=== PATIENT | male | born 1965 | race Caucasian/White ===

== ENCOUNTER 2020-05-04 13:21 | Inpatient (IN) ==
--- NOTE | 2020-05-04 14:33 | Emergency Department Note ---
History of Present Illness General Chief complaint: Stroke/CVA Symptoms Stated complaint: LEFT ARM NUMB & ABOVE LEFT EYEY Time Seen by Provider: 05/04/20 14:15 Source: patient Mode of arrival: ambulatory Limitations: no limitations History of Present Illness Maximum Pain Intensity: 0 This patient comes in after having tingling in his left arm and a little bit in his left face that he woke up with the 2:00 in the morning on Monday. He says since then its is gotten significantly better he has minimal tingling in his left hand and antecubital fossa area and he is not sure if he has any on his face there is no other symptoms. He has had no headache. There is no weakness. He has had no difficulty speaking or swallowing or ambulating. No chest pain or shortness of breath. No fever or chills. No known exposure to Covid or GI symptoms present. Home Medications Medication Instructions Recorded Confirmed Type Otc Pain Reliever 1 tab PO UD PRN 05/04/20 05/04/20 History aspirin 325 mg PO DAILY 05/04/20 05/04/20 History Allergies Allergy/AdvReac Type Severity Reaction Status Date / Time No Known Allergies Allergy Unverified 05/04/20 15:27 Past Med/Surg History Social History Smoking Status: Current every day smoker Tobacco Type: Cigarettes Feels Safe at Home: Yes Immunizations: Past medical historydenies hypertension or diabetes or cardiac disease. He has not seen a doctor in many years however. Social history - He is a smoker. Does not use alcohol or drugs. Review of Systems A total of 10 systems reviewed and were otherwise negative Physical Exam Vital Signs Vital Signs - 24 hr 05/04/20 13:28 05/04/20 15:27 05/04/20 16:04 Temperature 36.8 C Temperature Source Oral Pulse Rate 83 Pulse Rate [Right Finger] 72 72 Respiratory Rate 18 18 18 Respiratory Effort / Characteristics Non-Labored Respiratory Depth Normal Blood Pressure 157/101 H Blood Pressure [Right Arm] 158/98 H 149/90 H Blood Pressure Mean 119 Blood Pressure Mean [Right Arm] 118 109 Pulse Oximetry 96 97 97 Oxygen Delivery Method Room Air Room Air Sepsis Recent Fever Within 48 Hours No Sepsis New/Unexplained Change in Mental Status No Sepsis Action Taken by Nursing No Action Required General: Well developed well nourished not ill-appearing middle-age male who appears in no acute distress, breathing comfortably on room air. Normal speech HEENT: Normal cephalic atraumatic. Pupils are equal round and reactive to light. Extraocular movements are intact. Oropharynx is pink with moist mucous membranes. No swelling of the mouth lips or tongue. Neck: Supple with a midline trachea. No meningeal signs or stiffness, no JVD or bruits. No Stridor. Chest: Clear to auscultation bilaterally. No wheezes or rhonchi. No increased work of breathing. Heart: Regular rate and rhythm without murmurs or gallops. Abdomen: Soft nontender, nondistended without rebound guarding or rigidity. Extremities: No cyanosis clubbing or edema. No calf tenderness or assymetry Spine/Back. Non tender to palpation. No CVA tenderness Skin: Good turgor without rashes. Neurologic exam: Cranial nerves two through 12 are intact. Motor and sensation are intact and symmetrical throughout. Normal speech. His stroke scale was 0. Subjectively he says he feels tingly and small areas on his left arm around his knuckles and also antecubital fossa however went to sharp and dull he gets these correct. No facial asymmetry or droop. Course Administered Medications Discontinued Medications Gadobutrol (Gadobutrol 65ml Vial) 7.5 ml IV ONCE ONE Stop: 05/04/20 17:39 Last Admin: 05/04/20 17:38 Dose: 7.5 ml Documented by: [id number] Ioversol (Optiray 320 125ml) 119 ml IV ONCE ONE Stop: 05/04/20 15:55 Last Admin: 05/04/20 15:54 Dose: 119 ml Documented by: [id number] Medical Decision Making Differential Diagnosis TIA, CVA, intracranial process, infection, anemia, electrolyte or metabolic abnormality. Medical Records Attestation: I reviewed the patient's medical records. Home Medications Current Medication List: was personally reviewed by me Laboratory Data Attestation: I reviewed the patient's lab results. Result diagrams: 05/04/20 13:40 05/04/20 13:40 Lab Results 05/04/20 05/04/20 05/04/20 Range/Units 13:40 13:40 13:40 WBC 10.87 H (4.8-10.8) K/uL RBC 4.93 (4.7-6.1) M/uL Hgb 15.2 (14.0-18.0) g/dL Hct 45.5 (42-52) % MCV 92.3 (80-100) fL MCH 30.8 (25-34) pg MCHC 33.4 (32-36) g/dL RDW Std Deviation 48.6 H (36.4-46.3) fL RDW Coeff of Abdifatah 14.3 (11.5-14.5) % Plt Count 297 (130-400) K/uL MPV 10.5 H (7.4-10.4) fL Immature Gran % (Auto) 0.3 % Neut % (Auto) 56.5 % Lymph % (Auto) 31.9 % Pettis % (Auto) 9.6 % Eos % (Auto) 1.5 % Baso % (Auto) 0.2 % Neut # (Auto) 6.15 (1.4-6.5) K/uL Lymph # (Auto) 3.47 H (1.2-3.4) K/uL Pettis # (Auto) 1.04 H (0.11-0.59) K/uL Eos # (Auto) 0.16 (0-0.5) K/uL Baso # (Auto) 0.02 (0-0.2) K/uL Immature Gran # (Auto) 0.03 H (0.00-0.02) K/uL PT 10.1 (9.0-12.0) Seconds INR 1.0 (0.9-1.1) APTT 29.9 (21.0-31.0) Seconds PTT Ratio 1.1 Sodium 142 (136-145) mmol/L Potassium 3.7 (3.5-5.1) mmol/L Chloride 111 H (98-107) mmol/L Carbon Dioxide 25 (21-32) mmol/L Anion Gap 6.0 (3-11) BUN 18 (7-18) mg/dl Creatinine 0.91 (0.6-1.4) mg/dl Est Cr Clr Drug Dosing 86.8 ml/min Est GFR ( Amer) 110.3 Est GFR (Non-Af Amer) 95.2 BUN/Creatinine Ratio 19.4 (10-20) Glucose 95 (70-99) mg/dl Calcium 9.1 (8.5-10.1) mg/dl Magnesium 2.3 (1.8-2.4) mg/dl Total Bilirubin 0.6 (0.2-1) mg/dl AST 21 (15-37) U/L ALT 31 (12-78) U/L Alkaline Phosphatase 79 (45-117) U/L Troponin I < 0.015 (0-0.045) ng/ml Total Protein 7.4 (6.4-8.2) gm/dl Albumin 3.9 (3.4-5.0) gm/dl Globulin 3.5 (2.5-4.0) gm/dl Albumin/Globulin Ratio 1.1 (0.9-2) Imaging Data Attestation: I personally reviewed and interpreted this imaging study as follows: Radiologist's Impression: CT head/brain wo con CLINICAL HISTORY: Stroke evaluation LEFT ARM NUMBNESS COMPARISON STUDY: No previous studies for comparison. TECHNIQUE: Axial CT of the brain is performed from the vertex to the skull base. IV contrast was not administered for this examination. A dose lowering t echnique was utilized adhering to the principles of ALARA. CT DOSE: FINDINGS: No intra or extra-axial mass lesions are visualized. There is no CT evidence of acute cortical infarction. There is no evidence of midline shift. There is no acute hemorrhage. No calvarial fractures are visualized. There is a 4 mm hypodensity within the right frontal white matter, consistent with a dilated perivascular space or old lacunar infarct. There are minimal foci of diminished attenuation within the white matter likely on a small vessel basis. There is no evidence of pathologic ventricular dilatation. There is no evidence of acute sinusitis IMPRESSION: No acute intracranial findings. HEAD CTA HISTORY: Left arm numbness. Stroke evaluation TECHNIQUE: Multiaxial CT images of the head were performed both before and after the intravenous administration of contrast to evaluate the major cerebral v essels. Maximum intensity projection images were also obtained. A dose lowering technique was utilized adhering to the principles of ALARA. COMPARISON: None. FINDINGS: There is no mass, hematoma, midline shift, or acute infarct. Visualized intracranial internal carotid arteries, distal vertebral arteries, and basilar artery are widely patent. There is no significant stenosis, occlusion, or aneurysm seen within the bilateral ACAs, MCAs, or purse framer. The major dural venous sinuses are patent. IMPRESSION: No significant stenosis, occlusion, or aneurysm within the [place] of [place]. CT angio neck with con CLINICAL HISTORY: Stroke evaluation COMPARISON STUDY: No previous studies for comparison. TECHNIQUE: CT angiography was performed from the aortic arch to the skull base. MIP imaging was performed. The patient was scanned in a dynamic helical fashion during intravenous administration of 119 cc of Optiray 320. A dose lowering technique was utilized adhering to the principles of ALARA. CT DOSE: 1620.67 mGy.cm Technique: CT angiogram of the carotid and vertebral arteries was obtained using intravenous contrast and 3-D reconstruction. NASCET criteria was utilized. Findings: The right carotid revealed no evidence of aneurysm and no evidence of dissection. There is no evidence of hemodynamic significant stenosis. The left carotid revealed no evidence of hemodynamic significant stenosis. There is no evidence of aneurysm. There is no evidence of dissection. There is no evidence of hemodynamically significant vertebral stenosis. There is no evidence of vertebral dissection. The left vertebral origin is suboptimally assessed due to artifact from adjacent dense venous contrast IMPRESSION: No evidence of hemodynamically significant carotid or vertebral artery stenosis. No evidence of dissection. MRI OF THE BRAIN WITHOUT AND WITH IV CONTRAST CLINICAL HISTORY: eval for stroke, left arm numbness and tingling COMPARISON STUDY: Noncontrast head CT dated 05/04/2020 TECHNIQUE: MRI of the brain was performed from the vertex to the skull base utilizing various T1 and T2 weighted sequences. Following the IV administration of 7.5 mL of Gadavist contrast, additional enhanced images were obtained. FINDINGS: Sagittal T1, axial diffusion, proton density and T2 weighted axial, coronal FLAIR, and pre and post axial T1-weighted images were acquired. These were supplemented with post gadolinium coronal T1 weighted images. No intra or extra-axial mass lesions are visualized. There is a 6 mm focus of restricted water diffusion within the right lateral thalamus consistent with a subacute infarct There is no evidence of ventricular dilatation. Proton density T2-weighted and FLAIR images reveal a 6 mm focus of increased T2 signal within the right thalamus, corresponding to the area of restricted water diffusion. This is indicative of a subacute infarct. There are scattered tiny foci of increased T2 signal within the white matter, likely on a small vessel ischemic basis. There are no abnormal flow voids. There is no evidence of pathologic enhancement. IMPRESSION: 1. 6 mm focus of restricted water diffusion within the right thalamus indicative of a subacute infarct 2. No evidence of intracranial mass. ECG Data Attestation: I personally reviewed and interpreted this ECG as follows: Indication: + weakness Rate (beats per minute): 82 Rhythm: + normal sinus ECG Intervals/blocks: + Normal QRS, + Normal QT and + Normal AR ECG [place]: + Normal ECG ST segments: + Normal ST segments and + ST depression Comparison ECG Date: no prior available MDM Narrative This patient comes in as described above peers placed on a rn cardiac cath room a 4. He has had vague tingling in his left arm and maybe his face since Monday. It has gotten significantly better. he has a normal neurologic exam and looks well. He has had no known exposure to Covid. he has stable vital signs. He is afebrile. He did have an extensive stroke work-up including EKG and multiple blood testing and CT with CTA of the head and neck. He was reassessed frequently. Given the time frame he was not a stroke alert as this has been going on for several days and he was out of the window of TPA or acute intervention, additionally his stroke score was 0. He has nothing to suggest infection. He is not anemic. He has no significant lecture light or metabolic abnormality. His EKG shows normal sinus rhythm without ischemic changes. His troponin is negative. He has no renal failure or liver failure. CAT scan of the head and neck were obtained with CTA. There is no significant stenosis or vascular abnormality in the head or neck. There is a 4 mm hypodensity in the right frontal area which could be an old lacunar infarct. I did suggest we do an MRI which the patient did agree to and was performed. Impression & Plan Stroke, Numbness and tingling in left arm Discharge Plan Visit Data Chief Complaint: Stroke/CVA Symptoms Stated Complaint: LEFT ARM NUMB & ABOVE LEFT EYEY ED Provider: Sky Packer Discharge Problem: Stroke, Numbness and tingling in left arm Discharge Instructions Activity Restrictions/Additional Instructions: Rest. Drink plenty of fluids. Take an enteric-coated aspirin 81 mg once a day Return if: Worsening symptoms, numbness weakness, any new problems or concerns. Follow-up with your doctor this week for recheck Forms Stand Alone Forms: My [facility] [employer] Prescriptions Prescriptions: No Action aspirin 325 mg Tablet 325 mg PO DAILY RF: 0 Otc Pain Reliever 1 tab PO UD PRN (Reason: Pain) RF: 0 Referrals Referrals: PCP,NO [Primary Care Provider] - Discharge Problem: Stroke Qualifiers: CVA mechanism: unspecified Qualified Code(s): I63.9 - Cerebral infarction, unspecified
--- NOTE | 2020-05-04 14:54 | XRay Report ---
XR chest 1V portable CLINICAL HISTORY: stroke-like symptoms COMPARISON STUDY: No previous studies for comparison. FINDINGS: The cardiac and mediastinal contours are normal. There is no evidence of focal pulmonary co nsolidation. There is no evidence of failure. No pleural effusions are visualized.[ IMPRESSION: No active disease in the chest. ACT 112: Negative or not required by law. Electronically signed by: Oscar Rios M.D. 05/04/2020 2:53 PM
[2020-05-04 15:29] LABS: Basophils # (auto) 0.02 K/uL (0-0.2); Basophils % (auto) 0.2 %; Eosinophils # (auto) 0.16 K/uL (0-0.5); Eosinophils % (auto) 1.5 %; Hematocrit (blood only) 45.5 % (42-52); Hemoglobin 15.2 g/dL (14.0-18.0); Immature Granulocytes # (auto) 0.03 K/uL (0.00-0.02); Immature Granulocytes % (auto) 0.3 %; Lymphocytes # (auto) 3.47 K/uL (1.2-3.4); Lymphocytes % (auto) 31.9 %; Mean Corpuscular Hemoglobin 30.8 pg (25-34); Mean Corpuscular Hgb Conc 33.4 g/dL (32-36); Mean Corpuscular Volume 92.3 fL (80-100); Mean Platelet Volume 10.5 fL (7.4-10.4); Monocytes # (auto) 1.04 K/uL (0.11-0.59); Monocytes % (auto) 9.6 %; Neutrophils # (auto) 6.15 K/uL (1.4-6.5); Neutrophils % (auto) 56.5 %; Platelet Count 297 K/uL (130-400); RDW Coefficient of Variation 14.3 % (11.5-14.5); RDW Standard Deviation 48.6 fL (36.4-46.3); Red Blood Count 4.93 M/uL (4.7-6.1); White Blood Count 10.87 K/uL (4.8-10.8)
[2020-05-04 15:37] LABS: Alanine Aminotransferase 31 U/L (12-78); Albumin Level 3.9 gm/dl (3.4-5.0); Aspartate Aminotransferase 21 U/L (15-37); BUN Creatinine Ratio 19.4 (10-20); Blood Urea Nitrogen 18 mg/dl (7-18); Calcium 9.1 mg/dl (8.5-10.1); Carbon Dioxide 25 mmol/L (21-32); Chloride 111 mmol/L (98-107); Creatinine Clr Calc Pharmacy 86.8 ml/min; Est GFR (African American) 110.3; Est GFR (Non-African American) 95.2; Glucose 95 mg/dl (70-99); Magnesium 2.3 mg/dl (1.8-2.4); Potassium 3.7 mmol/L (3.5-5.1); Sodium 142 mmol/L (136-145)
[2020-05-04 15:41] LABS: Partial Thromboplastin Ratio 1.1; Partial Thromboplastin Time 29.9 Seconds (21.0-31.0); Prothrombin Time 10.1 Seconds (9.0-12.0)
[2020-05-04 15:42] LABS: Albumin Globulin Ratio 1.1 (0.9-2); Alkaline Phosphatase 79 U/L (45-117); Bilirubin,Total 0.6 mg/dl (0.2-1); Globulin 3.5 gm/dl (2.5-4.0); Total Protein 7.4 gm/dl (6.4-8.2); Troponin I < 0.015 ng/ml (0-0.045)
[2020-05-04] MEDS ORDERED: OPTIRAY 320 125ml IV ONE (15:54)
--- NOTE | 2020-05-04 16:05 | CT Scan Report ---
CT head/brain wo con CLINICAL HISTORY: Stroke evaluation LEFT ARM NUMBNESS COMPARISON STUDY: No previous studies for comparison. TECHNIQUE: Axial CT of the brain is performed from the vertex to the skull base. IV contrast was not administered for this examination. A dose lowering technique was utilized adhering to the principles of ALARA. CT DOSE: FINDINGS: No intra or extra-axial mass lesions are visualized. There is no CT evidence of acute cortical infarc tion. There is no evidence of midline shift. There is no acute hemorrhage. No calvarial fractures ar e visualized. There is a 4 mm hypodensity within the right frontal white matter, consistent with a dilated perivasc ular space or old lacunar infarct. There are minimal foci of diminished attenuation within the white matter likely on a small vessel basis. There is no evidence of pathologic ventricular dilatation. There is no evidence of acute sinusitis IMPRESSION: No acute intracranial findings. ACT 112: Negative or not required by law. Electronically signed by: Oscar Rios M.D. 05/04/2020 4:04 PM
--- NOTE | 2020-05-04 16:08 | CT Scan Report ---
CT angio neck with con CLINICAL HISTORY: Stroke evaluation COMPARISON STUDY: No previous studies for comparison. TECHNIQUE: CT angiography was performed from the aortic arch to the skull base. MIP imaging was perfo rmed. The patient was scanned in a dynamic helical fashion during intravenous administration of 119 c c of Optiray 320. A dose lowering technique was utilized adhering to the principles of ALARA. CT DOSE: 1620.67 mGy.cm Technique: CT angiogram of the carotid and vertebral arteries was obtained using intravenous contrast and 3-D reconstruction. NASCET criteria was utilized. Findings: The right carotid revealed no evidence of aneurysm and no evidence of dissection. There is no evidenc e of hemodynamic significant stenosis. The left carotid revealed no evidence of hemodynamic significant stenosis. There is no evidence of an eurysm. There is no evidence of dissection. There is no evidence of hemodynamically significant vertebral stenosis. There is no evidence of verte bral dissection. The left vertebral origin is suboptimally assessed due to artifact from adjacent den se venous contrast IMPRESSION: No evidence of hemodynamically significant carotid or vertebral artery stenosis. No evidence of disse ction. ACT 112: Negative or not required by law. Electronically signed by: Oscar Rios M.D. 05/04/2020 4:07 PM
--- NOTE | 2020-05-04 16:09 | CT Scan Report ---
HEAD CTA HISTORY: Left arm numbness. Stroke evaluation TECHNIQUE: Multiaxial CT images of the head were performed both before and after the intravenous admi nistration of contrast to evaluate the major cerebral vessels. Maximum intensity projection images we re also obtained. A dose lowering technique was utilized adhering to the principles of ALARA. COMPARISON: None. FINDINGS: There is no mass, hematoma, midline shift, or acute infarct. Visualized intracranial cisco certified internetwork expert al carotid arteries, distal vertebral arteries, and basilar artery are widely patent. There is no sig nificant stenosis, occlusion, or aneurysm seen within the bilateral ACAs, MCAs, or emergency medicine nurse practitioner. The major du ral venous sinuses are patent. IMPRESSION: No significant stenosis, occlusion, or aneurysm within the [place] of [place]. ACT 112: Negative or not required by law. Electronically signed by: Luis Valenzuela M.D. 05/04/2020 4:07 PM
[2020-05-04] MEDS ORDERED: GADOBUTROL 65ML VIAL IV ONE (17:38)
--- NOTE | 2020-05-04 18:06 | Magnetic Resonance Report ---
MRI OF THE BRAIN WITHOUT AND WITH IV CONTRAST CLINICAL HISTORY: eval for stroke, left arm numbness and tingling COMPARISON STUDY: Noncontrast head CT dated 05/04/2020 TECHNIQUE: MRI of the brain was performed from the vertex to the skull base utilizing various T1 and T2 weighted sequences. Following the IV administration of 7.5 mL of Gadavist contrast, additional enh anced images were obtained. FINDINGS: Sagittal T1, axial diffusion, proton density and T2 weighted axial, coronal FLAIR, and pre and post a xial T1-weighted images were acquired. These were supplemented with post gadolinium coronal T1 weight ed images. No intra or extra-axial mass lesions are visualized. There is a 6 mm focus of restricted water diffusion within the right lateral thalamus consistent with a subacute infarct There is no evidence of ventricular dilatation. Proton density T2-weighted and FLAIR images reveal a 6 mm focus of increased T2 signal within the rig ht thalamus, corresponding to the area of restricted water diffusion. This is indicative of a subacut e infarct. There are scattered tiny foci of increased T2 signal within the white matter, likely on a small vessel ischemic basis. There are no abnormal flow voids. There is no evidence of pathologic enhancement. IMPRESSION: 1. 6 mm focus of restricted water diffusion within the right thalamus indicative of a subacute infarc t 2. No evidence of intracranial mass. ACT 112: Negative or not required by law. Electronically signed by: Oscar Rios M.D. 05/04/2020 6:04 PM
--- NOTE | 2020-05-04 18:59 | History & Physical Report ---
Date of Service May 04, 2020 History of Present Illness Primary Care Provider: NO PCP Allergies Allergy/AdvReac Type Severity Reaction Status Date / Time No Known Allergies Allergy Unverified 05/04/20 15:27 Home Medications Medication Instructions Recorded Confirmed Type Otc Pain Reliever 1 tab PO UD PRN 05/04/20 05/04/20 History aspirin 325 mg PO DAILY 05/04/20 05/04/20 History Past Med/Surg History Social History Smoking Status: Current every day smoker Tobacco Type: Cigarettes Feels Safe at Home: Yes Results & Data Results & Data ([facility]) Vital Signs (Past 12 Hours) Vital Signs Temp Pulse Pulse Resp BP BP Pulse Ox 05/04/20 18:10 78 20 145/99 H 95 05/04/20 16:04 72 18 149/90 H 97 05/04/20 15:27 72 18 158/98 H 97 05/04/20 13:28 98.2 F 83 18 157/101 H 96 PG Care Time/CCT Total # of Minutes Spent Total Time Spent with Patient: Total time spent is greater than 50% in coordination of care (as documented) at patient's floor/unit and/or counseling patient: Coding
--- NOTE | 2020-05-04 19:05 | History & Physical Report ---
Date of Service May 04, 2020 Assessment & Plan (1) Numbness and tingling in left arm: Patient is a 54-year-old male who has not seen a primary care provider in approximately 15 years. The patient presents for evaluation of left arm weakness. #Left arm tingling and numbness diagnosed as a subacute stroke by brain MRI Patient presenting with signs and symptoms concerning for a stroke, initial evaluation with CT did not demonstrate any pathological findings. However repeat imaging with brain MRI demonstrated a subacute stroke in the right thalamus. This corresponds with the patient's left-sided symptoms. His symptoms have gone away at this point, however when he was having them he described left-sided numbness and tingling up and down his left upper extremity. He did not describe any other muscular weakness. He had no tingling or muscular weakness in his lower extremity or in his face. All of his symptoms were isolated to his left upper extremity. Given that the patient's symptoms started Monday evening he is out of the stroke window, and TPA would not be of benefit. The patient has not seen a primary care provider in a number of years, and has numerous risk factors for further complications as described above. For this reason he will be admitted for stroke work-up and observation. -Following stroke protocol without TPA -Started on atorvastatin 80 mg -Daily aspirin -consult neuro #Current every day smoker Please provide smoking cessation education while the patient was hospitalized #Need for preventative medical care Patient reports that he has not seen a doctor in over 20 years, or reporting that his most recent PCP unfortunately . Patient will need to designate a PCP on discharge and follow-up with them for routine medical care. -Case management consulted for discharge planning, particularly obtaining a PCP FENa: N.p.o. pending dysphagia screen Code Status: Full DVT PPX: SCDs PT/OT: Not indicated Dispo: Giselle Nunez MD PGY 2, FCM This chart was completed utilizing [employer] voice recognition software. Grammatical errors, random word insertions, pronoun errors, and in complete sentences are an occasional consequence of the system. Any questions or con cerns about the content, text, or information contained within the body of this dictation should be addressed directly to the physician for clarification. (2) Stroke: (3) Smoker: History of Present Illness Patient is a 54-year-old male who has not seen a primary care provider in approximately 15 years. The patient presents for evaluation of left arm weaknes s. Per the patient his symptoms began Monday morning at 2 AM when he woke up feeling like he had fallen asleep on his arm. He moved his arm around and went back to sleep. Upon waking up his symptoms had not resolved, they were not worse however they were not better, the patient described them as a tingling feeling limited to his left upper extremity, strength was intact, sensation was intact, there was no chest pain, there was no chest pressure, there was no shortness of breath, there was no other concerning signs or symptoms. The patient did not experience dysarthria, the patient does not experience other muscular weakness, or tingling elsewhere throughout his body. This symptoms very slowly improved over time, the patient reported that he was well enough yesterday to go to work. The patient denies any other symptomology, does not take any meds on a daily basis, and has not seen In greater than 15 years. Patient presented to the emergency room today at his sister's insistence due to his ongoing symptoms she was concerned as there is a family history of cardiovascular disease. On admission to the emergency department the patient had a white count of 10.87, INR within normal limits, Chem-7 was unremarkable, CT head was negative for acute process, CTA of the head and neck was also negative, chest x-ray was negative, brain MRI demonstrated a subacute infarct in the right thalamus. With regards to risk factors, the patient does not measure his blood pressure at home, reports his diet could be a little better, reports a family history of cardiovascular disease, is not on a statin, does not take an aspirin, and is a current every day smoker. During our interview the patient was comfortable in bed, given his current pathology, lack of PCP, and need for further evaluation the patient will be admitted for observation. Primary Care Provider: NO PCP Allergies Allergy/AdvReac Type Severity Reaction Status Date / Time No Known Allergies Allergy Unverified 05/04/20 15:27 Home Medications Medication Instructions Recorded Confirmed Type aspirin 81 mg PO QAM 30 Days #30 tab 05/05/20 Rx atorvastatin 80 mg PO QAM 30 Days #60 tab 05/05/20 Rx Past Med/Surg History Social History Smoking Status: Current every day smoker Tobacco Type: Cigarettes Hx Alcohol Use: No Hx Substance Use: Yes Preferred Language: Slovak Volunte[employer] Required: No Beliefs That Will Affect Care: None Current Living Situation: Family Feels Safe at Home: Yes Assistive Devices: None Review of Systems Review of Systems: All systems reviewed & are unremarkable except as noted in HPI & below Physical Exam Physical Exam: General: In no acute distress HEENT: Normocephalic atraumatic Neck: Normal to visual inspection, trachea midline Cardiac: Regular rate and rhythm, I did not appreciate any significant murmurs rubs or gallops, normal S1, normal S2, negative pedal edema, negative calf tenderness Respiratory: Clear to auscultation bilaterally with symmetrical chest expansion, no increased work of breathing, did not appreciate any significant wheezes, rales, rhonchi GI: Soft, nontender, nondistended, bowel sounds present in all 4 quadrants MSK: Moves all extremities without issue, strength intact, sensation intact Neuro: Alert and oriented x4, CN II through XII grossly intact, cerebellar function intact, strength intact, sensation intact, normal neuro exam Psych: Calm and cooperative with the examination Results & Data Results & Data ([facility]) Vital Signs (Past 12 Hours) Vital Signs Temp Pulse Pulse Resp BP BP Pulse Ox 05/04/20 18:10 78 20 145/99 H 95 05/04/20 16:04 72 18 149/90 H 97 05/04/20 15:27 72 18 158/98 H 97 05/04/20 13:28 36.8 C 83 18 157/101 H 96 Laboratory Results 05/04/20 05/04/20 05/04/20 Range/Units 13:40 13:40 13:40 WBC 10.87 H (4.8-10.8) K/uL RBC 4.93 (4.7-6.1) M/uL Hgb 15.2 (14.0-18.0) g/dL Hct 45.5 (42-52) % MCV 92.3 (80-100) fL MCH 30.8 (25-34) pg MCHC 33.4 (32-36) g/dL RDW Std Deviation 48.6 H (36.4-46.3) fL RDW Coeff of Abdifatah 14.3 (11.5-14.5) % Plt Count 297 (130-400) K/uL MPV 10.5 H (7.4-10.4) fL Immature Gran % (Auto) 0.3 % Neut % (Auto) 56.5 % Lymph % (Auto) 31.9 % [place] % (Auto) 9.6 % Eos % (Auto) 1.5 % Baso % (Auto) 0.2 % Neut # (Auto) 6.15 (1.4-6.5) K/uL Lymph # (Auto) 3.47 H (1.2-3.4) K/uL [place] # (Auto) 1.04 H (0.11-0.59) K/uL Eos # (Auto) 0.16 (0-0.5) K/uL Baso # (Auto) 0.02 (0-0.2) K/uL Immature Gran # (Auto) 0.03 H (0.00-0.02) K/uL PT 10.1 (9.0-12.0) Seconds INR 1.0 (0.9-1.1) APTT 29.9 (21.0-31.0) Seconds PTT Ratio 1.1 Sodium 142 (136-145) mmol/L Potassium 3.7 (3.5-5.1) mmol/L Chloride 111 H (98-107) mmol/L Carbon Dioxide 25 (21-32) mmol/L Anion Gap 6.0 (3-11) BUN 18 (7-18) mg/dl Creatinine 0.91 (0.6-1.4) mg/dl Est Cr Clr Drug Dosing 86.8 ml/min Est GFR ( Amer) 110.3 Est GFR (Non-Af Amer) 95.2 BUN/Creatinine Ratio 19.4 (10-20) Glucose 95 (70-99) mg/dl Calcium 9.1 (8.5-10.1) mg/dl Magnesium 2.3 (1.8-2.4) mg/dl Total Bilirubin 0.6 (0.2-1) mg/dl AST 21 (15-37) U/L ALT 31 (12-78) U/L Alkaline Phosphatase 79 (45-117) U/L Troponin I < 0.015 (0-0.045) ng/ml Total Protein 7.4 (6.4-8.2) gm/dl Albumin 3.9 (3.4-5.0) gm/dl Globulin 3.5 (2.5-4.0) gm/dl Albumin/Globulin Ratio 1.1 (0.9-2) Code Status & VTE Plan Code Status Full code VTE Prophylaxis Plan VTE Prophylaxis will be ordered: Yes Supervising Physician Co-Signing Physician Notes Attending addendum: I have physically seen this patient, have supervised the medical residents activities, and agree with the H&P unless as otherwise noted. Assessment and Plan: Subacute CVA right thalamus /manifested as left arm tingling and numbness- Admit to monitored bed Stroke with TPA protocol order set High-dose statin, atorvastatin 80 mg daily Aspirin 81 mg daily Consult PT/OT/speech therapy/neurology Tobacco use disorder- Cessation counseling Remainder of orders and notations as noted Resident Activity Tracking Resident Involvement: Resident Care Provided Care Provided: Adult Hospital Medicine (1) Stroke CVA mechanism: unspecified Qualified Code(s): I63.9 - Cerebral infarction, unspecified
[2020-05-04] MEDS ORDERED: PHARMACIST DISCHARGE MED REC CONSULT PRN (20:53)
[2020-05-04] MEDS ORDERED: ACETAMINOPHEN 325 MG TAB PO PRN (20:53)
[2020-05-04] MEDS ORDERED: ONDANSETRON INJ 2 MG/ML 2 ML VIAL IV PRN (20:53)
[2020-05-04] MEDS: POLYETHYLENE (MIRALAX) 17 GM PACK PO SCH (21:31)
[2020-05-04] MEDS: LACTATED RINGER'S 1,000 ML IV SCH (21:31)
[2020-05-04] MEDS: ATORVASTATIN 40 MG TAB PO SCH (22:05)
[2020-05-05] MEDS: LACTATED RINGER'S 1,000 ML IV SCH (05:31)
--- NOTE | 2020-05-05 05:33 | Electrocardiogram Report ---
Test Reason : Blood Pressure : / mmHG Vent. Rate : 082 BPM Atrial Rate : 082 BPM P-R Int : 166 ms QRS Dur : 096 ms QT Int : 374 ms P-R-T Axes : 050 -12 024 degrees QTc Int : 436 ms Normal sinus rhythm Normal ECG No previous ECGs available Confirmed by Javon Barker ([id number]) on 05/05/2020 5:33:16 AM Referred By: Confirmed By:Javon Barker
[2020-05-05 06:54] LABS: Basophils # (auto) 0.01 K/uL (0-0.2); Basophils % (auto) 0.1 %; Eosinophils # (auto) 0.08 K/uL (0-0.5); Eosinophils % (auto) 0.9 %; Hematocrit (blood only) 43.4 % (42-52); Hemoglobin 14.5 g/dL (14.0-18.0); Immature Granulocytes # (auto) 0.02 K/uL (0.00-0.02); Immature Granulocytes % (auto) 0.2 %; Lymphocytes # (auto) 2.73 K/uL (1.2-3.4); Lymphocytes % (auto) 29.3 %; Mean Corpuscular Hemoglobin 30.7 pg (25-34); Mean Corpuscular Hgb Conc 33.4 g/dL (32-36); Mean Corpuscular Volume 91.9 fL (80-100); Mean Platelet Volume 10.2 fL (7.4-10.4); Monocytes # (auto) 0.77 K/uL (0.11-0.59); Monocytes % (auto) 8.3 %; Neutrophils # (auto) 5.72 K/uL (1.4-6.5); Neutrophils % (auto) 61.2 %; Platelet Count 276 K/uL (130-400); RDW Standard Deviation 47.6 fL (36.4-46.3); Red Blood Count 4.72 M/uL (4.7-6.1); White Blood Count 9.33 K/uL (4.8-10.8)
[2020-05-05 07:16] LABS: Estimated Average Glucose 126 mg/dl
[2020-05-05 07:20] LABS: BUN Creatinine Ratio 19.6 (10-20); Calcium 8.8 mg/dl (8.5-10.1); Creatinine Clr Calc Pharmacy 96.3 ml/min; Est GFR (African American) 116.2; Est GFR (Non-African American) 100.3; Potassium 3.8 mmol/L (3.5-5.1)
[2020-05-05] MEDS: ATORVASTATIN 40 MG TAB PO SCH (07:58)
[2020-05-05] MEDS: POLYETHYLENE (MIRALAX) 17 GM PACK PO SCH (08:10)
--- NOTE | 2020-05-05 08:39 | Hospitalist Progress Note ---
Date of Service May 05, 2020 Assessment & Plan Admission and Anticipated Discharge Date Admission Date: May 04, 2020 Results & Data Results & Data ([facility]) Vital Signs (Past 12 Hours) Vital Signs Temp Pulse Pulse Resp BP BP Pulse Ox 05/05/20 07:47 73 05/05/20 03:29 37.0 C 68 18 137/83 94 05/04/20 23:23 36.9 C 60 18 135/92 94 05/04/20 22:20 68 05/04/20 21:06 73 05/04/20 20:54 36.7 C 65 18 129/90 96
[2020-05-05] MEDS ORDERED: ASPIRIN 81 MG ECTAB PO SCH (09:00)
--- NOTE | 2020-05-05 09:21 | XCELERA ---
[id number]
--- NOTE | 2020-05-05 09:44 | Neurology Consultation ---
Date of Consultation May 05, 2020 Assessment & Plan (1) Stroke: Small subacute ischemic stroke within the right thalamus presenting with numbness and tingling to the left arm, without associated weakness, dysarthria, or other gross neurologic deficits. Patient'ssensory symptoms have si gnificantly improved since their onset several days ago. Cigarette smoking is a significant stroke risk factor for this patient. Other recently identified risk factors include hypercholesterolemia, borderline diabetes mellitus, and possibly hypertension. I agree with daily low-dose aspirin and atorvastatin as prescribed. Patient will need to establish with a primary care physician for ongoing monitoring and management of additional potential cardiovascular risk factors as above. Smoking cessation was stressed with the patient and will likely need to be revisited going forward. It does not look like he will require inpatient rehabilitation. PT/OT and speech therapy consultations are pending. I do not have any further immediate recommendations for this patient's neurological care. He should not require additional outpatient neurological follow-up but does need to establish with a PCP going forward. Case discussed with family service caseworker at bedside. History of Present Illness Reason for Consultation: Stroke Requesting Physician: Jose Alberto Nunez MD Attending Physician: Ella Acharya MD History of Present Illness The patient is a 54-year old male with a chief complaint of left arm numbness and tingling that awoke him from sleep at around 2 AM this past Monday. He denies experiencing any associated weakness or change in speech. The numbness has been gradually improving over the past few days, since onset and is nearly resolved this morning. He had been discussing his symptoms with his sister who recommended that he come to the hospital for further evaluation and management. He is an everyday smoker and does not have a primary care physician and does not take any prescription medications. He has undergone a thorough stroke evaluation including CT of the head, CT angiography of the head and neck, brain MRI, and echocardiogram. He does have a small subacute appearing ischemic infarct within the right thalamus. No significant vascular lesions identified on CT angiography. No evidence of atrial fibrillation with cardiac monitoring. No obvious cardioembolic source with echocardiography. His blood pressure was modestly elevated at the time of presentation, although has improved overnight and this morning. He has been prescribed daily low-dose aspirin and atorvastatin in the context of this current hospitalization. He does not have any antihypertensive ordered at this point in time. Again, the patient currently feels as if his left arm numbness is nearly resolved. He does report a very minimal degree of numbness affecting the left palm only and again, no associated weakness, loss of vice president of news strength, or gross difficulty with coordination. Family history: Noncontributory Allergies Allergy/AdvReac Type Severity Reaction Status Date / Time No Known Allergies Allergy Unverified 05/04/20 15:27 Home Medications Medication Instructions Recorded Confirmed Type Otc Pain Reliever 1 tab PO UD PRN 05/04/20 05/04/20 History aspirin 325 mg PO DAILY 05/04/20 05/04/20 History Patient History Social History Smoking Status: Current every day smoker Tobacco Type: Cigarettes Hx Alcohol Use: No Hx Substance Use: Yes Preferred Language: Mongolian Manager Group Home Required: No Beliefs That Will Affect Care: None Current Living Situation: Family Other Information That Helps Us Care for You: No Feels Safe at Home: Yes Safety Concerns: Feels Safe At This Time Assistive Devices: None Review of Systems Constitutional: no fever and no chills Eyes: no blind spots and no diplopia Ear, Nose, Mouth, Throat: no hearing loss Respiratory: no cough and no dyspnea Cardiovascular: no chest pain and no palpitations Gastrointestinal: no nausea and no vomiting Genitourinary: no dysuria Musculoskeletal: no myalgia Integumentary: no rash and no lesions Neurologic: as per Subjective / HPI and + paresthesia; no gait abnormality, no localized weakness, no headache(s), no confusion and no memory loss Psychiatric: no depression and no anxiety Hematologic / Lymphatic: no easy bleeding and no easy bruising Exam (Neuro) Constitutional: well developed and well nourished; no acute distress Eyes: normal visual tucker by confrontation, PERRL, normal accommodation and EOM intact bilaterally; no fundoscopic abnormality, no nystagmus and no papilledema Cardiovascular: Vessels: normal carotid upstroke; no carotid bruit Neurologic: Oriented to:: Person, Place and Time Memory: Short Term Intact and Remote Intact Attention: Span Intact and Concentration Intact Language: Naming Objects and Repeating Phrases Speech Fluency: negative Dysarthria Speech Aphasia: negative Aphasia Fund of Knowledge: Current Events, Past History and Vocabulary Cranial Nerves: Normal II (Visual tucker full to confrontation, visual acuity normal), III, IV, (Pupils equal round reactive to light and accommodation, eye movements normal), V (Facial sensation intact), VII (There is no facial droop or weakness), VIII (Hearing intact), IX, X (Palate elevates to midline), XI (Shoulder shrug intact) and XII (Tongue protrudes to midline) Motor Strength: Normal Lower Extremities and Normal Upper Extremities; negative Pronator Drift Motor Tone: Normal Lower Extremities and Normal Upper Extremities Muscle Bulk/Involuntary Movements: No Involuntary Movements; negative Muscle Atrophy Sensation: Light Touch Intact, Pain/Temperature Intact, Vibration Intact and Proprioception Intact Coordination: Normal; negative Limited Balance, Dysdiadochokinesia, Finger-Nose Abnormal and Heel-Guardado Abnormal Deep Tendon Reflexes: Rt Triceps: 2+, Lt Triceps: 2+, Rt Biceps: 2+, Lt Biceps: 2+, Rt Brachioradialis: 2+, Lt Brachioradialis: 2+, Rt Patellar: 2+, Lt Patellar: 2+, Rt Ankle: 1+ and Lt A nkle: 1+ Special Tests: negative Babinski Present Gait: Normal Station and Gait Results & Data ([facility]) Vital Signs (Past 12 Hours) Vital Signs Temp Pulse Pulse Resp BP Pulse Ox 05/05/20 07:47 73 05/05/20 03:29 37.0 C 68 18 137/83 94 05/04/20 23:23 36.9 C 60 18 135/92 94 05/04/20 22:20 68 Laboratory Results WBC 9.33, hemoglobin 14.5, hematocrit 43.4, platelet count 276 sodium 140, potassium 3.8, BUN 16, creatinine 0.82, glucose 92, hemoglobin A1c 6.0, calcium 8.8, triglycerides 62, cholesterol 250, LDL 188, VLDL 12, HDL [address] of the head negative for hemorrhage or acute process. There is a prominent perivascular space within the right frontal lobe versus old lacunar infarct. CT angiography of the head and neck negative for stenosis, occlusion, aneurysm, or dissection. MRI of the brain reveals a 6 mm focus of restricted diffusion within the right thalamus consistent with a subacute infarct. There was corresponding increased T2 signal and decreased signal on ADC map. There is scattered chronic small vessel ischemic disease as well. These findings were observed by the interpreting radiologist. I reviewed the images and agree. Electrocardiogram reveals a normal sinus rhythm, 82 bpm. An echocardiogram reveals a normal left ventricular size and systolic function, ejection fraction 65 to 70%, no regional wall motion abnormalities. There is mild left atrial dilatation. No visualized ASD. No obvious cardioembolic source. Coding Level of Care Code 12367 Inpt Consult Level 5 Diagnoses Stroke I63.9 CVA mechanism: unspecified (1) Stroke CVA mechanism: unspecified Qualified Code(s): I63.9 - Cerebral infarction, unspecified
--- NOTE | 2020-05-05 11:24 | Discharge Summary ---
Date of Service May 05, 2020 Admission HPI Per Admitting Provider Patient is a 54-year-old male who has not seen a primary care provider in approximately 15 years. The patient presents for evaluation of left arm weakness. Per the patient his symptoms began Monday morning at 2 AM when he woke up feeling like he had fallen asleep on his arm. He moved his arm around and went back to sleep. Upon waking up his symptoms had not resolved, they were not worse however they were not better, the patient described them as a tingling feeling limited to his left upper extremity, strength was intact, sensation was intact, there was no chest pain, there was no chest pressure, there was no shortness of breath, there was no other concerning signs or symptoms. The patient did not experience dysarthria, the patient does not experience other muscular weakness, or tingling elsewhere throughout his body. This symptoms very slowly improved over time, the patient reported that he was well enough yesterday to go to work. The patient denies any other symptomology, does not take any meds on a daily basis, and has not seen In greater than 15 years. Patient presented to the emergency room today at his sister's insistence due to his ongoing symptoms she was concerned as there is a family history of cardiovascular disease. On admission to the emergency department the patient had a white count of 10.87, INR within normal limits, Chem-7 was unremarkable, CT head was negative for acute process, CTA of the head and neck was also negative, chest x-ray was negative, brain MRI demonstrated a subacute infarct in the right thalamus. With regards to risk factors, the patient does not measure his blood pressure at home, reports his diet could be a little better, reports a family history of cardiovascular disease, is not on a statin, does not take an aspirin, and is a current every day smoker. During our interview the patient was comfortable in bed, given his current pathology, lack of PCP, and need for further evaluation the patient will be admitted for observation. Admission Exam Per Admitting Provider General: In no acute distress HEENT: Normocephalic atraumatic Neck: Normal to visual inspection, trachea midline Cardiac: Regular rate and rhythm, I did not appreciate any significant murmurs rubs or gallops, normal S1, normal S2, negative pedal edema, negative calf tenderness Respiratory: Clear to auscultation bilaterally with symmetrical chest expansion, no increased work of breathing, did not appreciate any significant wheezes, rales, rhonchi GI: Soft, nontender, nondistended, bowel sounds present in all 4 quadrants MSK: Moves all extremities without issue, strength intact, sensation intact Neuro: Alert and oriented x4, CN II through XII grossly intact, cerebellar function intact, strength intact, sensation intact, normal neuro exam Psych: Calm and cooperative with the examination Principal Diagnosis acute cva Discharge Exam Constitutional WD/WN, vitals as above Eyes PERRL, conjunctivae normal, anicteric sclerae ENMT external ear and nose normal, oropharynx normal Respiratory normal respiratory effort, lungs clear to auscultation Cardiovascular RRR, no murmur, no edema Gastrointestinal (Abdomen) normal bowel sounds, soft, nontender, no hepatosplenomegaly Musculoskeletal no cyanosis or clubbing, extremities motor strength 5/5 Skin no rashes, warm and dry Neurologic patellar DTR's 2+ bilat, sensation intact and PERRL, EOMI, accommodation nl, no face palsy, no dysarthria Psychiatric A+Ox3, euthymic affect Discharge Data Allergies Allergy/AdvReac Type Severity Reaction Status Date / Time No Known Allergies Allergy Unverified 05/04/20 15:27 Consultations 05/04/20 20:53 Consult Case Management - Discharge Planning Routine Consult Case Management - Discharge Planning Routine Consult Neurology Routine 05/05/20 10:03 Consult [facility] overnight houseperson Routine Ordered Studies 05/04/20 14:27 CT angio head w con Stat CT angio neck with con Stat CT head/brain wo con Stat 05/04/20 16:27 MR brain wo/w con Stat Hospital Course (1) Stroke: Patient is a 54-year-old male who has not seen a primary care provider in approximately 15 years. The patient presented initially for evaluation of left arm weakness, numbness, and tingling that had resolved by arrival to the ED. Subacute Stroke R Thalamus -Head CT negative, though small subacute ischemic stroke within the R thalamus on MRI. -No TPA initiated as patient was outside the time range -Stroke protocol without TPA ordered -Patient started on Atorvastatin 80mg, continued on discharge -Started on ASA 81mg, continued on discharge -Echo with EF 65-70% without regional wall motion abnormalities or ASD. -Neurology consulted - agreed with low-dose ASA and atorvastatin, also recommended further smoking cessation and establishment with PCP. -Recommend discussing blood pressure management and pre-diabetic management with PCP. -Recommend possible screening for sleep apnea if blood pressure becomes concerning. Nicotine Dependance -Patient noting 0.5-1PPD x 20 years -Educated on smoking cessation -Instructed to continue discussion with PCP upon discharge Need for PCP -Patient set up with outpatient PCP services while inpatient -Follow up with Dr. Fitzpatrick on 05/11/20 at 8:10AM (2) Numbness and tingling in left arm: (3) Smoker: Total Time Total Time Spent Total Time Spent (In Minutes): see attending attestation Discharge Plan Discharge Items Patient Disposition: Home - Self-Care Reason For Visit: STROKE Discharge Diagnosis: Subacute Stroke in the R Thalamus Activity: Resume your previous activity Non-emergency contact: Primary Care Provider Call non-emergency contact if: you have any medication questions and your symptoms worsen Follow-up/Referrals: Jaymie Fitzpatrick MD [Physician] - 05/11/20 8:10 am (We scheduled you an appt with a PCP, Dr. Jaymie Fitzpatrick. This appt is on Friday 05/11 at 810am. Please arrive 15 minutes prior to your appt time. It is important that you keeo this appt, if this appt does not fit your schedule please call [phone] to get it rescheduled. Address: [facility] [address] [address]) Diet: Regular Addtl Attending Provider Instructions: Mr. Love, It was our pleasure caring for you at [facility] from 05/04 - 05/05/20 for your R thalamic stroke. Please see below for a summary of your care and future instructions. Subacute Stroke of the R Thalamus -You had initially presented with symptoms affecting your L arm with numbness and tingling. -You underwent imaging studies that showed a small stroke within the right thalamus, a portion of your brain that correlates with your symptoms. -You were evaluated by our Neurologist who believed that you were stable for discharge after being put on the appropriate medications. -As discussed, please continue to take your newly prescribed low-dose aspirin and atorvastatin, these were sent to [facility] in [place]. -Aspirin 81mg take 1 tablet daily -Atorvastatin 80mg take 2 tablet daily -Please follow up with the PCP below for follow up. Smoking Cessation -We discussed in the hospital in regards to smoking cessation to reduce the risk of a recurrent stroke. -You had noted at that time you were not ready to quit, but were interested in reduction in your smoking. -Please discuss with your PCP at the below scheduled appointment in regards to cessation if you would like further assistance in this. Risk Factors for Stroke: You can reduce your chances of stroke by working with your medical provider to adopt a healthy lifestyle. Some specific ways to lower your chance of stroke are: * If you are a smoker, now is the time to stop smoking cigarettes * If you are diabetic, improve the control of your blood sugars * Avoid excessive amounts of alcohol * Control high blood pressure * Lose weight if you are overweight * Be sure to lead an active lifestyle * Eat a healthy diet low in salt, cholesterol and fat You should know about other risk factors for stroke that you are unable to control. These include: * Age 55 years or older * Male gender * Certain racial groups: , or / * Family History of Stroke, Mini stroke or Heart Attack * Sickle Cell Disease Follow Up: It is important for you to keep your follow up appointments with your medical provider. Who to Call and When: Medical Emergencies: Call 911 immediately if you experience any of the following warning signs and symptoms of Stroke: * Sudden numbness or weakness of the face, arm or leg, especially on one side of the body * Sudden confusion, trouble speaking or understanding * Sudden trouble seeing in one or both eyes * Sudden trouble walking, dizziness, loss of balance or coordination * Sudden severe headache with no cause Do not delay calling 911 if you experience any warning signs or symptoms of a stroke. Delay in seeking medical attention may affect what treatments can be given to you. We scheduled you an appt with a PCP, Dr. Jaymie Fitzpatrick. This appt is on Friday 05/11 at 810am. Please arrive 15 minutes prior to your appt time. It is important that you keep this appt, if this appt does not fit your schedule please call [phone] to get it rescheduled. Pending Studies at Discharge: No Stand-Alone Forms: Medications to Prevent Stroke, [employer], Work/School Release (Inpt), Smoking Cessation Medications and DC Order Prescriptions: New atorvastatin 40 mg Tablet 80 mg PO QAM 30 Days Qty: 60 RF: 2 aspirin 81 mg Tablet,Delayed Release (Dr/Ec) 81 mg PO QAM 30 Days Qty: 30 RF: 2 Discontinued aspirin 325 mg Tablet 325 mg PO DAILY RF: 0 Otc Pain Reliever 1 tab PO UD PRN (Reason: Pain) RF: 0 Discharge Orders: Discharge Order (Routine); Ordered 05/05/20 Ordered By: Rome Balderas/Other Patient Handouts: A1C Admission Data Admit Date/Time: 05/04/20 19:10 Attending Provider: Ella Acharya Admit Provider: Jose Alberto Nunez I. Primary Care Provider: PCP,NO Other Providers: Sky Mancini ; Gonzalo Nelson ; Shea García ; Lupe Naik ; Renato Owusu Other Interventions: Discharge Summary Assessment (RN) Last Done: 05/05/20 11:46 Supervising Physician Co-Signing Physician Notes Resident Physician Supervision Note: I independently interviewed and examined the patient and verified the ortiz history and physical, reviewed labs and image studies, discussed the case with the resident Dr. Lunsford and agree with the findings and care plan. Resident Activity Tracking Resident Involvement: Resident Care Provided Care Provided: Adult Hospital Medicine
[2020-05-05] MEDS ORDERED: STROKE PATIENT DISCHARGE SCH (11:25)
--- NOTE | 2020-05-05 12:06 | Pharmacy Report ---
Pharmacist Stroke Counseling - Date of Service May 05, 2020 - Scope: Pharmacy has been consulted to provide medication discharge counseling for this patient admitted with [ischemic stroke] [hemorrhagic stroke] [transient ischemic attack] as per the Pharmacist Discharge Counseling for Stroke Patients [employer]. - Medications on Discharge: New Rx's Medication Instructions Recorded aspirin 81 mg PO QAM 30 Days #30 tab 05/05/20 atorvastatin 80 mg PO QAM 30 Days #60 tab 05/05/20 - Action: The above medications, specifically ones for stroke treatment/prophylaxis, have been reviewed in detail with the patient prior to discharge. This includes indication, common adverse reactions, drug interactions, and medication administration. Medication counseling has been employed using the teach-back method to ensure understanding. - Outcome: The patient have demonstrated understanding of the medications. Additional comments: -discussed with patient how to pick pack worker prescription at [facility] -discussed insurance procedures with patient. Thank you for allowing pharmacy to be involved in the care of this patient. Please call [phone] with any additional questions
== END 2020-05-05 14:10 | disposition home or self-care (01) | DRG 66 ==
LOC: ED 13:21 → SUATTDRO 19:10 → 2N 19:16